=== PATIENT | female | born 2000 | race Caucasian/White ===

== ENCOUNTER 2018-01-10 10:23 | Emergency (ER) | payer OTHER ==
[~2018-01-10] VITALS: Ht 157.5 cm; Wt 89.3 kg
[2018-01-10 11:51] LABS: APPEARANCE SL.HAZY ((CLEAR)); BILIRUBIN NEGATIVE; BLOOD NEGATIVE; COLOR YELLOW ((YELLOW)); GLUCOSE (STRIP) NEGATIVE; KETONES 80; LEUKOCYTES MODERATE; NITRITE NEGATIVE; PROTEIN (STRIP) NEGATIVE; SPECIFIC GRAVITY 1.017 (1.000-1.030)
[2018-01-10 11:57] LABS: BACTERIA RARE /HPF; CALCIUM OXALATE CRYSTALS 2+ /HPF; EPITHELIAL CELLS 1+ /HPF; MUCUS TRACE /LPF; RED BLOOD CELLS 0-5 /HPF (0-5); UCUL ADDED? YES
[2018-01-10] MEDS ORDERED: ZOFRAN ODT4 MG PO (12:34)
[2018-01-10] MEDS ORDERED: MACROBID100 MG PO (12:34)
[2018-01-10] MEDS ORDERED: VENTOLIN HFA18 GM IH (12:39)
[2018-01-10 12:58] VITALS: BP 100/83
== END 2018-01-10 12:59 | disposition home or self-care (01) ==
LOC: EME 10:23
PROVIDERS: Physician Assistant Medical
DX: O98.511 Other viral diseases complicating pregnancy, first trimester (principal); B34.9 Viral infection, unspecified; O99.611 Diseases of the digestive system complicating pregnancy, first trimester; K21.9 Gastro-esophageal reflux disease without esophagitis; O99.341 Other mental disorders complicating pregnancy, first trimester; F41.9 Anxiety disorder, unspecified; Z3A.13 13 weeks gestation of pregnancy
CPT/HCPCS: 81003; 87086; 94640; 99281; 99284; J7030